=== PATIENT | male | born 1970 | race Caucasian/White ===

== ENCOUNTER → 2019-04-26 | Outpatient (CLI) | payer OTHER ==
[~2019-04-26] MED LIST: CLIN300 PO; IBUHYD PO; NAPR500 PO; TERB24TC TOP
== END | disposition home or self-care (01) ==
LOC: LAB SHORT 07:54 → PLD 07:54
DX: L57.0 Actinic keratosis (principal)
CPT/HCPCS: 88305

== ENCOUNTER 2020-08-22 08:53 | Day surgery (SDC) | payer OTHER ==
[~2020-08-22] VITALS: Ht 175.3 cm; Wt 92.7 kg
[~2020-08-22 08:53] MED LIST changes: +ATEN50 PO; +BUSP10 PO; +OMEP20ER PO
--- NOTE | 2020-08-22 10:16 | NUR ---
08/22/20 1016 [address] [place] 5CC NS INJECTED INTO ASCENDING COLON FOR POLYPECTOMY
== END 2020-08-22 10:39 | disposition home or self-care (01) ==
LOC: ORSCSDS 08:53
PROVIDERS: Internal Medicine Gastroenterology
PROC: 0DBK8ZX Excision of Ascending Colon, Via Natural or Artificial Opening Endoscopic, Diagnostic (ICD-10-PCS; principal; 2020-08-22 10:00)
DX: Z12.11 Encounter for screening for malignant neoplasm of colon (principal); D12.2 Benign neoplasm of ascending colon; I10 Essential (primary) hypertension; K21.9 Gastro-esophageal reflux disease without esophagitis; Z79.899 Other long term (current) drug therapy
CPT/HCPCS: 88305; J2704; J7120

== ENCOUNTER → 2023-03-01 | Outpatient (CLI) | payer OTHER | LOC: LAB SHORT 09:38 → LAB 09:38 | DX: B35.1 Tinea unguium (principal) | CPT/HCPCS: 87102 ==

== ENCOUNTER 2024-04-17 10:59 | Day surgery (SDC) | payer OTHER ==
[~2024-04-17] VITALS: Ht 175.3 cm; Wt 84.3 kg
[~2024-04-17 10:59] MED LIST changes: +Lactated Ringer's 1,000 ML IV ONE; +propofoL 50 ML IV ONE
[2024-04-17] MEDS ORDERED: Lactated Ringer's 1,000 ML IV ONE (11:20)
[2024-04-17 12:29] VITALS: BP 112/80
== END 2024-04-17 12:30 | disposition home or self-care (01) ==
LOC: ORSCSDS 10:59
PROVIDERS: Internal Medicine Gastroenterology
PROC: 0DBB8ZX Excision of Ileum, Via Natural or Artificial Opening Endoscopic, Diagnostic (ICD-10-PCS; principal; 2024-04-17 12:15)
DX: Z12.11 Encounter for screening for malignant neoplasm of colon (principal); Z86.0101 Personal history of adenomatous and serrated colon polyps; K51.80 Other ulcerative colitis without complications; K64.4 Residual hemorrhoidal skin tags; I10 Essential (primary) hypertension; E78.5 Hyperlipidemia, unspecified; F41.9 Anxiety disorder, unspecified; Z79.899 Other long term (current) drug therapy
CPT/HCPCS: 88305; J2704; J7120